=== PATIENT | female | born 1955 | race African-American/Black ===

== ENCOUNTER 2019-06-03 12:49 | Emergency (ER) | payer MEDICARE, MEDICAID ==
[~2019-06-03] VITALS: Ht 167.6 cm; Wt 100.0 kg
[~2019-06-03 12:49] MED LIST: AMLO5TAB88; ASPI-1158 PO; ATEN-42 PO; ATOR40TA70; DOCU-276; GLIM2TAB30; HYDR-4134 PO; HYDR25TA PO; LIP40 PO; PHEN100C12; SITA50TA3 PO; SPIR1TAB26
[2019-06-03] MEDS ORDERED: NAPROXEN 250MG TABLET PO ONE (16:00)
[2019-06-03 22:40] VITALS: BP 145/68
== END 2019-06-03 22:46 | disposition home or self-care (01) ==
LOC: ER 13:12
DX: S93.491A Sprain of other ligament of right ankle, initial encounter (principal); W50.2XXA Accidental twist by another person, initial encounter; Y93.89 Activity, other specified; Y92.89 Other specified places as the place of occurrence of the external cause; Y99.8 Other external cause status; E11.649 Type 2 diabetes mellitus with hypoglycemia without coma; I10 Essential (primary) hypertension; G45.9 Transient cerebral ischemic attack, unspecified; Z79.82 Long term (current) use of aspirin; Z79.899 Other long term (current) drug therapy
CPT/HCPCS: 73610; 82962; 93970; 99284